=== PATIENT | female | born 1955 | race Caucasian/White ===

== ENCOUNTER 2024-05-23 13:57 | Outpatient (CLI) | payer MEDICARE, BC | END 2024-05-23 23:59 | disposition home or self-care (01) | LOC: MRI02 13:57 | PROVIDERS: ATTEND Physician Assistant | DX: M65.841 Other synovitis and tenosynovitis, right hand (principal); M65.341 Trigger finger, right ring finger; M79.644 Pain in right finger(s) | CPT/HCPCS: 73218 ==